=== PATIENT | male | born 1935 | race Caucasian/White ===

== ENCOUNTER → 2021-06-08 | Outpatient (CLI) | payer BC ==
--- NOTE | 2021-06-08 10:07 | KCIC ---
EXAM: Chest, single view. HISTORY: Assisted living assessment. COMPARISON: None. FINDINGS: A frontal view of the chest is obtained. There is no infiltrate, pleural effusion or pneumo thorax. The heart is normal in size. IMPRESSION: No acute pulmonary finding. Electronically signed by: Joy Quiñonez MD (06/08/2021 10:05 AM) [id number]
== END ==
LOC: KCIC 09:10
PROVIDERS: ATTEND Specialist
DX: Z00.00 Encounter for general adult medical examination without abnormal findings (principal)
CPT/HCPCS: 71045